=== PATIENT | male | born 1960 | race Hispanic/Latino ===

== ENCOUNTER 2021-05-22 10:09 | Outpatient (CLI) | payer OTHER ==
--- NOTE | 2021-05-22 14:56 | Magnetic Resonance Report ---
MRI LEFT TIBIA-FIBULA WITHOUT AND WITH CONTRAST INDICATION / CLINICAL INFORMATION: M66.60 OTHER CHRONIC OSTEOMYELITIS - UNSPECIFIED SITE Spider bite 8 mos. ago, tenderness and swelling. TECHNIQUE: Multiplanar, multisequence MR images were obtained. Pre and postcontrast images of the lef t tibia and fibula were obtained. COMPARISON: None available. FINDINGS: BONES: No significant bone marrow edema. No fracture. No osseous lesion. No MR evidence of osteomyeli tis. MUSCLES / TENDONS: There is heterogeneously low T1/low T2 signal measuring at least 20 cm in cranioca udal dimension and 1.7 x 1.8 cm in transverse dimensions at the lateral aspect of the leg adjacent to the fibula. This has essentially replaced the peroneal muscles. On postcontrast images, there is int ernal heterogeneous enhancement. SOFT TISSUES: There is a small skin defect seen on series 11 image 14. VISUALIZED JOINTS: No significant abnormality. ADDITIONAL FINDINGS: None. IMPRESSION: 1. There is diffuse granulation tissue which has essentially replaced the peroneal muscles, measureme nts as above. As mentioned above, there is a small sinus tract extending into the inferior portion of this but no abscess or osteomyelitis is seen. No acute cellulitis is appreciated. Report dictated by: Gildardo Carrasquillo MD Report dictated on: 05/22/2021 1:16 PM I have reviewed the images, agree with this report, and edited this report as needed. Signer Name: Angelito Duron MD Signed: 05/22/2021 2:49 PM Workstation Name: [email or web address]
== END 2021-05-22 10:10 | disposition home or self-care (01) ==
LOC: MRI 10:09
PROVIDERS: ATTEND Radiology Diagnostic Radiology
DX: M86.60 Other chronic osteomyelitis, unspecified site (principal)
CPT/HCPCS: 73720; A9575

== ENCOUNTER 2021-06-27 09:11 | Outpatient (CLI) | payer OTHER ==
--- NOTE | 2021-06-27 13:16 | Vascular Lab Report ---
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 TECHNIQUE: Arterial duplex examination of both lower extremities performed using B-mode, color flow a nd spectral Doppler assessment. FINDINGS: RIGHT: Mild atherosclerotic disease. Common Femoral Artery: PSV 84 cm/sec. Triphasic waveform. Proximal SFA: PSV 92 cm/sec. Triphasic waveform. Mid SFA: PSV 69 cm/sec. Triphasic waveform. Distal SFA: PSV 87 cm/sec. Triphasic waveform. Popliteal Artery: PSV 55 cm/sec. Triphasic waveform. Posterior Tibial Artery: PSV 49 cm/sec. Triphasic waveform. Dorsalis Pedis Artery: PSV 41 cm/sec. Biphasic waveform. LEFT: Mild to moderate atherosclerotic disease. Common Femoral Artery: PSV 95 cm/sec. Triphasic waveform. Proximal SFA: PSV 114 cm/sec. Triphasic waveform. Mid SFA: PSV 73 cm/sec. Triphasic waveform. Distal SFA: PSV 83 cm/sec. Triphasic waveform. Popliteal Artery: PSV 64 cm/sec. Triphasic waveform. Posterior Tibial Artery: PSV 60 cm/sec. Triphasic waveform. Dorsalis Pedis Artery: PSV 12 cm/sec. Monophasic waveform. ADDITIONAL FINDINGS: Absence of color Doppler blood flow within the left anterior tibial artery. RIGHT MARY: 1.17 LEFT MARY: 1.03 IMPRESSION: 1. Multifocal atherosclerotic disease is present throughout both lower extremities, left greater than right. 2. 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 Transition to monophasic waveform with damp ened velocity is noted within the left dorsalis pedis artery suggesting more proximal stenosis. Ankle-Brachial Index (MARY): - Calcified arteries > 1.4 - Normal = 0.9-1.4 - Mild PAD = 0.7-0.89 - Moderate PAD = 0.51-0.69 - Severe PAD < 0.5 Doppler Waveform: - Triphasic is normal. - Biphasic is abnormal if clear transition from triphasic signal along vascular tree. - Monophasic is abnormal. Scribed by: Latoya Horn RDMS, KAREN, PATRICIO Scribed: 06/27/2021 11:03 AM I have reviewed the images, agree with this report, and edited this report as needed. Signer Name: Michael Kirkpatrick MD Signed: 06/27/2021 1:11 PM Workstation Name: [id number]
== END 2021-06-27 09:12 | disposition home or self-care (01) ==
LOC: VAS 09:11
PROVIDERS: ATTEND Radiology Diagnostic Radiology
DX: I70.245 Atherosclerosis of native arteries of left leg with ulceration of other part of foot (principal); I70.203 Unspecified atherosclerosis of native arteries of extremities, bilateral legs
CPT/HCPCS: 93922; 93925